=== PATIENT | female | born 1980 | race African-American/Black ===

== ENCOUNTER 2018-01-14 01:27 | Emergency (ER) | payer MEDICAID ==
[~2018-01-14] VITALS: Ht 165.1 cm; Wt 82.0 kg
[~2018-01-14 01:27] MED LIST: ALBU2.5V13 IH; [UNRECOGNIZED DRUG - CODE] PO
[2018-01-14] MEDS ORDERED: ALBUTEROL (0.083%) 2.5MG/3ML NEB HHN STA (03:29)
[2018-01-14] MEDS ORDERED: IPRATROPIUM BROMIDE (0.02%) 0.5MG/2.5ML NEB HHN STA (03:29)
[2018-01-14 05:17] VITALS: BP 159/92
== END 2018-01-14 06:04 | disposition home or self-care (01) ==
LOC: ER 01:27
DX: J32.9 Chronic sinusitis, unspecified (principal); J45.909 Unspecified asthma, uncomplicated; R03.0 Elevated blood-pressure reading, without diagnosis of hypertension
CPT/HCPCS: 94640; 99283; J7611

== ENCOUNTER 2018-01-28 09:44 | Emergency (ER) | payer MEDICAID ==
[~2018-01-28] VITALS: Ht 165.1 cm; Wt 79.0 kg
[2018-01-28] MEDS ORDERED: ALBUTEROL (0.083%) 2.5MG/3ML NEB HHN STA (10:20)
[2018-01-28] MEDS ORDERED: PREDNISONE 20MG TABLET PO STA (10:20)
[2018-01-28] MEDS ORDERED: IPRATROPIUM BROMIDE (0.02%) 0.5MG/2.5ML NEB HHN STA (10:20)
[2018-01-28] MEDS ORDERED: IPRATROPIUM/ALBUTEROL 0.5-3(2.5)MG/3ML NEB ONE (10:51)
[2018-01-28 11:39] VITALS: BP 160/84
== END 2018-01-28 11:42 | disposition home or self-care (01) ==
LOC: ER 10:25
DX: J32.9 Chronic sinusitis, unspecified (principal); J45.909 Unspecified asthma, uncomplicated; Z98.51 Tubal ligation status
CPT/HCPCS: 71045; 94640; 99283; J7512; J7611; J7620

== ENCOUNTER 2019-02-11 07:29 | Emergency (ER) | payer MEDICAID ==
[~2019-02-11] VITALS: Ht 165.1 cm; Wt 84.0 kg
[2019-02-11] MEDS ORDERED: IBUPROFEN 800MG TABLET PO ONE (08:30)
[2019-02-11 08:49] VITALS: BP 148/84
== END 2019-02-11 08:40 | disposition home or self-care (01) ==
LOC: ER 07:29
DX: H60.8X2 Other otitis externa, left ear (principal); J45.909 Unspecified asthma, uncomplicated; Z98.51 Tubal ligation status; Z98.890 Other specified postprocedural states
CPT/HCPCS: 99283

== ENCOUNTER 2022-04-08 18:09 | Emergency (ER) | payer BC, MEDICAID ==
[~2022-04-08] VITALS: Ht 165.1 cm; Wt 87.0 kg
[~2022-04-08 18:09] MED LIST changes: -[UNRECOGNIZED DRUG - CODE] PO
[2022-04-08 19:23] VITALS: BP 179/94
[2022-04-08] MEDS ORDERED: P20 MT (22:17)
[2022-04-08] MEDS ORDERED: ALBU6.7H3 INH (22:17)
== END 2022-04-08 22:26 | disposition home or self-care (01) ==
LOC: ER 18:09
DX: J32.9 Chronic sinusitis, unspecified (principal); J45.909 Unspecified asthma, uncomplicated; Z98.51 Tubal ligation status
CPT/HCPCS: 99283

== ENCOUNTER 2025-01-11 10:47 | Emergency (ER) | payer BC ==
[~2025-01-11] VITALS: Ht 167.6 cm; Wt 98.0 kg
[~2025-01-11 10:47] MED LIST changes: +ALBU6.7H3 INH; +P20 MT
[2025-01-11 11:06] VITALS: TEMP 36.8
[2025-01-11] MEDS ORDERED: DEXAMETHASONE 10 MG/ML VIAL IM ONE (11:15)
[2025-01-11] MEDS: IPRATROPIUM/ALBUTEROL 0.5-3(2.5)MG/3ML NEB HHN ONE (11:58)
[2025-01-11 12:01] VITALS: PULSE 84; RESP 20; O2SAT 98
[2025-01-11] MEDS ORDERED: ALBU90AE INH (13:21)
[2025-01-11] MEDS ORDERED: P50 MT (13:21)
[2025-01-11 13:25] VITALS: BP 108/87; PULSE 74; RESP 16; O2SAT 99
[2025-01-12] MEDS ORDERED: ALBU18HF2 IH (11:12)
[2025-01-12] MEDS ORDERED: ALBU2.5V13 NEB (11:12)
== END 2025-01-11 13:55 | disposition home or self-care (01) ==
LOC: ER 10:47
DX: J45.901 Unspecified asthma with (acute) exacerbation (principal)
CPT/HCPCS: 71045; 94640; 93005; 99283; J1100; Z7610 ×3; 94070; 94664

== ENCOUNTER 2025-01-12 10:15 | Emergency (ER) | payer BC ==
[~2025-01-12] VITALS: Ht 165.1 cm; Wt 90.0 kg
[~2025-01-12 10:15] MED LIST changes: +ALBU90AE INH; +P50 MT
[2025-01-12] MEDS ORDERED: ALBU2.5V13 NEB (11:12)
[2025-01-12] MEDS ORDERED: ALBU18HF2 IH (11:12)
[2025-01-12 11:16] VITALS: PULSE 101; RESP 18; O2SAT 96
[2025-01-12] MEDS: IPRATROPIUM/ALBUTEROL 0.5-3(2.5)MG/3ML NEB HHN ONE (11:16)
[2025-01-12 12:01] VITALS: BP 175/88; PULSE 75; RESP 18; TEMP 36.7; O2SAT 100
== END 2025-01-12 12:03 | disposition home or self-care (01) ==
LOC: ER 10:41
DX: J45.901 Unspecified asthma with (acute) exacerbation (principal); G43.909 Migraine, unspecified, not intractable, without status migrainosus; Z76.0 Encounter for issue of repeat prescription; Z98.51 Tubal ligation status
CPT/HCPCS: 94640; 99283; Z7610 ×3; 94070; 94664; 98960